=== PATIENT | male | born 1955 | race Caucasian/White ===

== ENCOUNTER → 2018-05-23 | Outpatient (CLI) | payer OTHER ==
[~2018-05-23] MED LIST: GADOBUTROL 10 ML VIAL IVP ONE
== END ==
LOC: FIMAGING 09:59
PROVIDERS: ATTEND Ophthalmology Pediatric Ophthalmology and Strabismus Specialist
DX: H50.32 Intermittent alternating esotropia (principal); H53.50 Unspecified color vision deficiencies
CPT/HCPCS: A9585